=== PATIENT | male | born 1945 | race Caucasian/White ===

== ENCOUNTER 2022-03-02 08:59 | Emergency (ER) | payer OTHER ==
[~2022-03-02] VITALS: Ht 180.3 cm; Wt 108.9 kg
[2022-03-02 10:56] LABS: Influenza A, PCR NEGATIVE (NEGATIVE); Influenza B, PCR NEGATIVE (NEGATIVE); Resp Syncytial Virus, PCR NEGATIVE (NEGATIVE)
[2022-03-02 11:02] LABS: SARS-Cov-2 (COVID-19) PCR, MMC POSITIVE (NEGATIVE)
[2022-03-02] MEDS ORDERED: DEXT30SU PO (11:17)
== END 2022-03-02 12:27 | disposition home or self-care (01) ==
LOC: ER 08:59
PROVIDERS: Student in an Organized Health Care Education/Training Program
DX: U07.1 COVID-19 (principal)
CPT/HCPCS: 0241U; A9270